=== PATIENT | male | born 1935 | race Two or more races ===

== ENCOUNTER 2018-09-05 20:03 | Inpatient (IN) | payer OTHER ==
[~2018-09-05] VITALS: Ht 180.3 cm; Wt 80.1 kg
[2018-09-05] MEDS ORDERED: SODIUM CHLORIDE 0.9% 500 ML IV ONE ×2 (20:26→20:30)
[2018-09-05] MEDS ORDERED: ACETAMINOPHEN 500 MG TAB PO ONE (20:30)
[2018-09-05] MEDS ORDERED: IBUPROFEN 600 MG TAB PO ONE (20:30)
[2018-09-05] MEDS ORDERED: ONDANSETRON HCL 4 MG/2 ML VIAL IV ONE (20:45)
[2018-09-05] MEDS ORDERED: MORPHINE SULF INJ 2 MG/ML SYRINGE 1ML IV ONE (20:45)
[2018-09-05] MEDS ORDERED: cefTRIAXone 1GM/50ML D5W 50 ML IV ONE (20:45)
[2018-09-05] MEDS ORDERED: AZITHROMYCIN 500MG/ 250ML 250 ML IV ONE (20:45)
[2018-09-05] MEDS ORDERED: ACETAMINOPHEN 650 MG RECT SUPP PR ONE (21:00)
[2018-09-05 21:27] LABS: Hemoglobin 16.9 g/dL (13.5-17.5); Mean Corpuscular Hemoglobin 32.5 pg (28.0-32.0); Mean Corpuscular Hgb Conc. 33.8 g/dL (32.0-36.0); Mean Corpuscular Volume 95.9 fL (80.0-100.0); Platelet Count (auto) 120 10^3/uL (140-450); Red Blood Cells 5.21 10^6/uL (4.5-5.90); Red Cell Distribution Width 14.7 % (11.8-14.3); White Blood Cell 8.3 10^3/uL (4.4-10.8)
[2018-09-05 21:35] LABS: Basophils % (manual) 0 (0.0-2.0); Blast Cells 0; Eosinophils % (manual) 0 (0-7); Metamyelocytes % 0; Myelocytes % 0; Promyelocytes % 0; Reactive Lymphocytes 0
[2018-09-05 21:37] LABS: Calcium 8.5 mg/dL (8.5-10.1); Potassium 3.3 mmol/L (3.5-5.1)
[2018-09-05 21:40] LABS: Lactic Acid w/Reflex 2.6 mmol/L (0.4-2.0)
[2018-09-05 21:41] LABS: Lipase 85 U/L (73-393)
[2018-09-05 21:42] LABS: BUN/Creatinine Ratio 17.8; Bilirubin, Total 0.9 mg/dL (0.2-1.0); Total Protein 6.1 g/dL (6.4-8.2)
[2018-09-05 21:43] LABS: INR 1.05 (0.9-1.15); Partial Thromboplastin Time 26.9 sec (23.64-32.05)
[2018-09-05 22:46] LABS: Urine Bacteria NONE SEEN /hpf (None Seen); Urine Blood TRACE /uL (Negative); Urine Specific Gravity 1.017 (1.001-1.035); Urine WBC 1 /hpf (0 - 3)
[2018-09-05 23:02] LABS: Band Neutrophils % (manual) 11; Lymphocytes % (manual) 6 (10.0-50.0); Monocytes % (manual) 5 (0-12)
[2018-09-06] VITALS (65 sets, daily range): BP systolic 90–153; BP diastolic 30–120
[2018-09-06] LABS: Lactic Acid w/Reflex 3.7 mmol/L (0.4-2.0)
[2018-09-06] MEDS ORDERED: SODIUM CHLORIDE 0.9% 2,000 ML IV ONE (01:00)
[2018-09-06] MEDS ORDERED: ACETAMINOPHEN 650 MG RECT SUPP PR ONE (01:45)
[2018-09-06] MEDS ORDERED: POTASSIUM CHL 20MEQ/100ML 100 ML IV ONE ×2 (02:15→07:31)
[2018-09-06] MEDS ORDERED: NOREPINEPHRINE 8 MG/250ML KIT 250 ML IV SCH (02:15)
[2018-09-06] MEDS: NOREPINEPHRINE 8 MG/250ML KIT 250 ML IV SCH (02:25)
[2018-09-06] MEDS ORDERED: VANCOMYCIN PER PHARMACY 0 MG IV SCH (03:00)
[2018-09-06] MEDS ORDERED: ONDANSETRON HCL 4 MG/2 ML VIAL IV PRN (03:00)
[2018-09-06] MEDS ORDERED: MORPHINE SULF INJ 2 MG/ML SYRINGE 1ML IV PRN (03:00)
[2018-09-06] MEDS ORDERED: TEMAZEPAM 15 MG CAP PO PRN (03:00)
[2018-09-06] MEDS ORDERED: NITROGLYCERIN 0.4 MG SL TAB SL PRN (03:00)
[2018-09-06] MEDS ORDERED: HYDROcodone-ACET 5/325MG TAB PO PRN (03:00)
[2018-09-06] MEDS ORDERED: DEXTROSE (50%) 50ML SYRG IV PRN (03:00)
[2018-09-06] MEDS ORDERED: metroNIDAZOLE 500MG/100ML 100 ML IV ONE (03:00)
[2018-09-06] MEDS ORDERED: VANCOMYCIN 1GM/250ML 250 ML IV SCH (04:00)
[2018-09-06] MEDS ORDERED: SODIUM CHLORIDE 0.9% 1,000 ML IV ONE (04:00)
[2018-09-06] MEDS: SODIUM CHLORIDE 0.9% 1,000 ML IV SCH ×2 (04:00→14:00)
[2018-09-06] MEDS: InsuLIN REG 1unit/0.01ml Soln (100units/ml) SC SCH ×4 (06:00→23:42)
[2018-09-06] MEDS ORDERED: PIPERACILLIN-TAZOB 3.375GM 100 ML IV SCH (06:00)
[2018-09-06] MEDS: ACCU-CHEK COMFORT CURVE STRIP VI SCH ×4 (06:00→23:42)
[2018-09-06] MEDS: PANTOPRAZOLE 40 MG/10 ML VIAL INJ IV SCH (06:00)
[2018-09-06 06:36] LABS: Basophils # (auto) 0 uL; Basophils % (auto) 0.1 % (0.0-2.0); Eosinophils # (auto) 0 uL; Hematocrit 38.8 % (41.0-53.0); Hemoglobin 12.8 g/dL (13.5-17.5); Lymphocytes # (auto) 0.9 uL; Lymphocytes % (auto) 7.1 % (10.0-50.0); Mean Corpuscular Hemoglobin 32.4 pg (28.0-32.0); Mean Corpuscular Hgb Conc. 33.1 g/dL (32.0-36.0); Mean Corpuscular Volume 97.9 fL (80.0-100.0); Monocytes # (auto) 1.3 uL; Monocytes % (auto) 9.8 % (0.0-12.0); Neutrophils # (auto) 10.8 uL; Platelet Count (auto) 105 10^3/uL (140-450); Red Blood Cells 3.96 10^6/uL (4.5-5.90); Red Cell Distribution Width 14.6 % (11.8-14.3)
[2018-09-06 06:44] LABS: Chloride 120 mmol/L (98-107); Sodium 147 mmol/L (136-145)
[2018-09-06 06:59] LABS: Potassium 2.9 mmol/L (3.5-5.1)
--- NOTE | 2018-09-06 07:01 | NUR ---
CRITICAL LAB/PAGED HOSPITALIST CALL RECEIVED FROM LAB WITH CRITICAL MAGNESIUM AND POTASSIUM LEVEL. PAGED HOSPITALIST/ER PHYSICIAN, AWAITING RESPONSE. CHARGE NURSE PHILL WALTER.
[2018-09-06 07:03] LABS: Albumin 1.4 g/dL (3.4-5.0); Alkaline Phosphatase 47 U/L (45-117); Anion Gap 11 (5-15); BUN/Creatinine Ratio 17.4; Bilirubin, Total 0.5 mg/dL (0.2-1.0); Blood Urea Nitrogen 21 mg/dL (7-18); Carbon Dioxide 16 mmol/L (21-32); GFR African American 74 mL/min; GFR Non-African American 61 mL/min; Glucose 292 mg/dL (74-106); Total Protein 3.2 g/dL (6.4-8.2)
[2018-09-06] MEDS ORDERED: MAGNESIUM SULFATE 1GM/100ML 100 ML IV ONE ×2 (07:10→07:38)
--- NOTE | 2018-09-06 07:12 | NUR ---
NASEEM CHRIS PAlidaA. AT BEDSIDE AWARE OF CRITICAL LABS, ORDERS RECEIVED BY BOTH SERA ARNP RN AND MYSELF. ORDERS WILL BE CARRIED OUT STAT.
--- NOTE | 2018-09-06 07:20 | NUR ---
OPENING SHIFT NOTE Assumed care of patient, awake and alert but appearing fatigued with episodes of forgetfulness. No S/S or distress noted, patient denies pain or discomfort at this time. Discussed plan of care in Mongolian with patient, no family at bedside at this time. Patient instructed to call for assist as needed and call light within reach. Patient verbalized understanding. Fall and safety precautions in place. Will continue to monitor for changes Q1hr and PRN.
[2018-09-06] MEDS ORDERED: NEBI10TA2 PO (07:47)
[2018-09-06] MEDS ORDERED: AZEL0.054 EACHEYE (07:47)
[2018-09-06] MEDS ORDERED: OMEP20TA PO (07:47)
[2018-09-06] MEDS ORDERED: DONE5TAB31 PO (07:47)
[2018-09-06] MEDS ORDERED: MONT10TA34 OR (07:47)
[2018-09-06] MEDS ORDERED: GUAI600T23 PO (07:47)
[2018-09-06] MEDS ORDERED: NAS17NSL (07:47)
[2018-09-06] MEDS ORDERED: BENA40TA7 PO (07:47)
[2018-09-06] MEDS ORDERED: TAMS0.4C36 PO (07:47)
[2018-09-06] MEDS ORDERED: SITA50TA PO (07:47)
[2018-09-06] MEDS ORDERED: INSLISPI SC (07:47)
[2018-09-06] MEDS ORDERED: GABA300C10 PO (07:47)
[2018-09-06] MEDS ORDERED: INSLANTI SC (07:47)
[2018-09-06] MEDS: MAGNESIUM SULFATE 1GM/100ML 100 ML IV SCH ×2 (08:16→08:17)
--- NOTE | 2018-09-06 08:28 | NUR ---
CALL RECEIVED FROM LAB PER SUPERVISOR POLICY CHANGE CLERKS, "UNABLE TO PROCESS REMAINDER OF CMP DUE TO CLOTTING ISSUES, THE MACHINE WILL NOT PROCESS ANYTHING AFTER THE POTASSIUM AND MAGNESIUM". WILL RE-ORDER CMP ONCE MAG AND POTASSIUM IV ADMINISTRATION IS COMPLETED TO REASSESS LEVELS.
[2018-09-06] MEDS: PIPERACILLIN-TAZOB 3.375GM 100 ML IV SCH ×2 (09:04→18:40)
[2018-09-06] MEDS: POTASSIUM CHL 20MEQ/100ML 100 ML IV SCH (09:20)
--- NOTE | 2018-09-06 09:30 | NUR ---
CAREER AND GUIDANCE COUNSELOR AT BEDSIDE FOR CMP REDRAW/MAG AND LACTIC ACID.
--- NOTE | 2018-09-06 10:00 | NUR ---
GI AT BEDSIDE DR COCHRAN UPDATED ON PATIENT'S STATUS, DRIPS AND REASON FOR CONSULT. DR COCHRAN DISCUSSED POC WITH PATIENT AT BEDSIDE, NO ORDERS AT THIS TIME; PENDING STOOL FOR CDIFF AND BACTERIA CULTURE - NO BOWEL MOVEMENT AT THIS TIME.
[2018-09-06 10:23] LABS: Lactic Acid w/Reflex 3.7 mmol/L (0.4-2.0)
--- NOTE | 2018-09-06 10:30 | NUR ---
FAMILY AT BEDSIDE PATIENT'S SON AND GRANDSON AT BEDSIDE, PATIENT CONVERSING APPROPRIATELY AND WATCHING TELEVISION. WILL CONTINUE TO MONITOR.
[2018-09-06 10:44] LABS: Glucose 374 mg/dL (74-106)
[2018-09-06 10:52] LABS: Alkaline Phosphatase 76 U/L (45-117); Anion Gap 10 (5-15); Aspartate Aminotransferase 13 U/L (15-37); BUN/Creatinine Ratio 18.2; Blood Urea Nitrogen 31 mg/dL (7-18); Carbon Dioxide 19 mmol/L (21-32); Chloride 109 mmol/L (98-107); GFR African American 50 mL/min; GFR Non-African American 41 mL/min; Potassium 5.1 mmol/L (3.5-5.1); Sodium 138 mmol/L (136-145)
[2018-09-06 10:53] LABS: Alanine Aminotransferase 26 U/L (16-61); Albumin 2.3 g/dL (3.4-5.0); Bilirubin, Total 0.7 mg/dL (0.2-1.0); Calcium 7.2 mg/dL (8.5-10.1); Total Protein 5.2 g/dL (6.4-8.2)
[2018-09-06 10:54] LABS: Magnesium 2.9 mg/dL (1.6-2.6)
[2018-09-06 11:06] LABS: Cholesterol 113 mg/dL (< 200); Triglycerides 73 mg/dL (< 150)
[2018-09-06 11:08] LABS: HDL Cholesterol 39 mg/dL (40-59); LDL Cholesterol 68 mg/dL (< 100)
--- NOTE | 2018-09-06 13:06 | NUR ---
BM/COMFORT/STOOL SAMPLE SENT TO LAB PATIENT CLEANSED OF YELLOW, FOUL ODOR, WATERY LOOSE STOOL. PATIENT ASSISTED TO BEDSIDE COMMODE BY COVERING RN WHILE THIS NURSE WAS AT LUNCH. UPON RETURNING FROM LUNCH, COMFORT MEASURES PROVIDED AND BOTTOM CLEANSED, PATIENT ABLE TO STAND AND RETURN TO BED WITH MINIMAL ASSISTANCE. STOOL SAMPLE SENT TO LAB FOR STOOL CULTURE ORDERED BY DR COCHRAN. C-DIFF TEST REQUISITION SHEET INITIATED AND FILED IN CHART FOR CONTINUED DOCUMENTATION PER C-DIFF PROTOCOL. FAMILY REMAINS AT BEDSIDE. PHILL CHARGE NURSE NOTIFIED.
[2018-09-06] MEDS ORDERED: metroNIDAZOLE 500MG/100ML 100 ML IV SCH (14:00)
--- NOTE | 2018-09-06 14:40 | NUR ---
REAL ESTATE DEVELOPMENT MANAGER AT BEDSIDE
--- NOTE | 2018-09-06 14:48 | NUR ---
US TECH AT BEDSIDE/HOSPITALIST DR SPAULDING UPDATED ON PATIENT'S STATUS AND PRN PINK TINGED URINE NOTED IN [facility] AND PATIENT COMPLAIN OF GROIN PAIN. ORDERS FOR DOWNGRADE TO [facility] RECEIVED, FLOMAX AND PROSTATE LABS. DR SPAULDING DISCUSSED PLAN OF CARE WITH PATIENT'S FAMILY. DR SPAULDING NOTIFIED FAMILY THAT PATIENT "WILL BE RELEASED WITH [facility] CATHETER TO FOLLOW-UP WITH UROLOGIST OUTPATIENT". FAMILY VERBALIZED UNDERSTANDING.
[2018-09-06] MEDS ORDERED: TAMSULOSIN HYDROCHLORIDE 0.4 MG CAP PO ONE (15:30)
[2018-09-06 18:06] LABS: BUN/Creatinine Ratio 19.8; Calcium 7.5 mg/dL (8.5-10.1); Potassium 4.6 mmol/L (3.5-5.1)
[2018-09-06 18:17] LABS: Lactic Acid w/Reflex 2.4 mmol/L (0.4-2.0)
[2018-09-06] MEDS: TAMSULOSIN HYDROCHLORIDE 0.4 MG CAP PO SCH (18:41)
[2018-09-06] MEDS: ACETAMINOPHEN 325 MG TAB PO PRN (18:41)
--- NOTE | 2018-09-06 19:36 | NUR ---
CLOSING NOTE PATIENT RESTING IN BED, ALERT AND ORIENTED X3 WITH EPISODES OF FORGETFULNESS. NO DISTRESS NOTED, RESPIRATIONS EVEN AND UNLABORED, CURRENTLY ON ROOM AIR. ENDORSED CONTINUED CARE TO FAMILY LAW PARALEGAL RN. NOTIFIED RECEIVING RN TO MONITOR NOTED BLEEDING IN [facility] CATHETER.
--- NOTE | 2018-09-06 20:00 | NUR ---
Opening Shift Note Assumed care of patient, awake and alert but confused. Family at bedside helping with translation. Breathing on RA, even and nonlabored, No S/S of distress/SOB. Pain controlled with Tylenol that given earlier. 18G IV at right FA infusing with NS, CDI site. 20IV at left FA, infusing with antibiotic, CDI site. Bolden's catheter hung to gravity with some small sediments and pink tinged, will continue to observed. Bed in low position, call light within reach, fall and safety precaution in place, all alarms are audible. Instructed on POC and to call for assist PRN, will continue to monitor for changes Q1hr and PRN.
--- NOTE | 2018-09-06 21:30 | NUR ---
Desaturation while sleeping, RR in the 10's, even and nonlabored breathing, O2sat fluctuating from 86-92%. Put Pt on 2LPM O2NC, O2sat increased to mid 90's. Continue monitoring.
--- NOTE | 2018-09-06 23:50 | NUR ---
Condition update/ pain Pt's condition stable, no fever. Still had period of desaturation while sleeping to high 80's, increased O2NC to 3LPM, will continue to monitor. C/O pain at abdomen while coughing, will administer pain medicine as order. AccuCheck 151mg/dl, will administer insulin per sliding scale. Continue care.
[2018-09-07] VITALS (7 sets, daily range): BP systolic 105–133; BP diastolic 40–68
[2018-09-07 00:39] LABS: Urine Bacteria MOD /hpf (None Seen); Urine Blood 2+ /uL (Negative); Urine Specific Gravity 1.031 (1.001-1.035); Urine WBC 42 /hpf (0 - 3)
[2018-09-07] MEDS ORDERED: VANCOMYCIN 1GM/250ML 250 ML IV SCH (01:00)
--- NOTE | 2018-09-07 01:10 | NUR ---
Received Bed assignment [facility] 262
--- NOTE | 2018-09-07 01:25 | NUR ---
Report given to Sahara CASTRO. Pt's belonging prepared and will sent to [facility] with Pt. Sahara CASTRO will notify family in the morning about room transfer.
[2018-09-07] MEDS: NOREPINEPHRINE 8 MG/250ML KIT 250 ML IV SCH (01:30)
[2018-09-07] MEDS: SODIUM CHLORIDE 0.9% 1,000 ML IV SCH ×2 (01:35→16:32)
--- NOTE | 2018-09-07 01:40 | NUR ---
Transferring to [facility] 262, Pt moved to [facility] bed slowly by self with minimal help. Transferred by bed with cardiac exercise specialist, RA while transferring, O2sat 94-96%. v/s stable, No s/s of distress. Pt's belonging transferred with Pt.
--- NOTE | 2018-09-07 01:45 | NUR ---
Admit to [facility] JORDANA ZAPATA admitted to [facility] via bed on guest experience captain, and portable 02. Patient connected to unit monitoring and oxygen. Patient oriented to Sahara Horowitz, primary RN, unit, room, bed, and unit policies regarding patient care and visiting hours. All questions and concerns addressed, patient verbalized understanding. Stable at this time, will continue to monitor.
[2018-09-07] MEDS: PIPERACILLIN-TAZOB 3.375GM 100 ML IV SCH ×3 (02:00→17:53)
[2018-09-07] MEDS: ACCU-CHEK COMFORT CURVE STRIP VI SCH ×3 (06:00→17:53)
[2018-09-07] MEDS: PANTOPRAZOLE 40 MG/10 ML VIAL INJ IV SCH (06:00)
[2018-09-07 06:03] LABS: Basophils # (auto) 0 uL; Basophils % (auto) 0.4 % (0.0-2.0); Eosinophils # (auto) 0.1 uL; Eosinophils % (auto) 0.4 % (0.0-7.0); Hematocrit 42.7 % (41.0-53.0); Hemoglobin 14.2 g/dL (13.5-17.5); Lymphocytes # (auto) 1.1 uL; Lymphocytes % (auto) 8.5 % (10.0-50.0); Mean Corpuscular Hemoglobin 32.6 pg (28.0-32.0); Mean Corpuscular Hgb Conc. 33.3 g/dL (32.0-36.0); Monocytes # (auto) 0.8 uL; Monocytes % (auto) 6.3 % (0.0-12.0); Neutrophils # (auto) 10.7 uL; Neutrophils % (auto) 84.4 % (37.0-80.0); Platelet Count (auto) 89 10^3/uL (140-450); Red Blood Cells 4.35 10^6/uL (4.5-5.90); White Blood Cell 12.7 10^3/uL (4.4-10.8)
[2018-09-07 06:19] LABS: Albumin 2.3 g/dL (3.4-5.0); Calcium 7.5 mg/dL (8.5-10.1); Magnesium 2.6 mg/dL (1.6-2.6); Potassium 4.3 mmol/L (3.5-5.1)
[2018-09-07 06:24] LABS: BUN/Creatinine Ratio 21.7; Bilirubin, Total 0.5 mg/dL (0.2-1.0)
[2018-09-07] MEDS: InsuLIN REG 1unit/0.01ml Soln (100units/ml) SC SCH ×3 (07:49→17:54)
--- NOTE | 2018-09-07 09:00 | NUR ---
Patient's and daughter Aisha at bedside, POC explained. Family verbalized understanding.
--- NOTE | 2018-09-07 09:15 | NUR ---
Dr Park at bedside, updated on patient's status. Patient seen and examined. Received verbal order for physical therapy and KUB xray, orders read back and verified. Will facilitate and carry out.
[2018-09-07] MEDS ORDERED: PANTOPRAZOLE 40 MG TAB PO ONE (09:30)
[2018-09-07] MEDS: PANTOPRAZOLE 40 MG TAB PO SCH (09:55)
--- NOTE | 2018-09-07 10:12 | NUR ---
Patient ambulated one lap around nurse station with Benito PT. Fall precautions in placed. Patient tolerated well.
--- NOTE | 2018-09-07 10:55 | NUR ---
Dr Aguilera at bedside, updated on patient's status. Patient seen and examined. No new orders at this time.
--- NOTE | 2018-09-07 14:17 | NUR ---
Dr Joiner at bedside, updated on patient's status. Patient seen and examined. No new orders at this time.
--- NOTE | 2018-09-07 15:24 | NUR ---
[facility] [place] [facility] for ss HH order.
--- NOTE | 2018-09-07 15:30 | NUR ---
Cynthia's ph # at [facility] is [phone] and fax is [phone]
--- NOTE | 2018-09-07 15:34 | NUR ---
CM ph line at [facility] is [phone] ext [phone]
[2018-09-07] MEDS: ACETAMINOPHEN 325 MG TAB PO PRN (16:33)
--- NOTE | 2018-09-07 17:38 | NUR ---
Per LEONARD consult home health for antony mgmnt and home physical therapy. Contacted [facility] Ph: ) Fax: ) faxed medical records. Bala Vargas from [facility] pt has been accepted and service to start within 48 hours upon d/c. Informed statistics manager Padma for authorization. Addendum: 09/07/18 at 1741 by JL MUÑOZ Amended: Links added.
[2018-09-07] MEDS: TAMSULOSIN HYDROCHLORIDE 0.4 MG CAP PO SCH (17:53)
--- NOTE | 2018-09-07 19:45 | NUR ---
SHIFT OPENING NOTE RECEIVED PATIENT AWAKE, ALERT AND ORIENTED X4. PERIODS OF CONFUSION. NO SOB, DISTRESS OR PAIN NOTED. ON 3 L N/C. PHYSICAL ASSESSMENT COMPLETED, SEE INTERVENTIONS. [facility] CATH DRAINING YELLOW URINE TO GRAVITY. INSTRUCTED ON POC AND TO CALL FOR ASSIST NEEDED. BED IS IN THE LOWEST POSITION WITH SIDE RAILS UP X2, CALL LIGHT IS WITHIN REACH. FAMILY AT BEDSIDE
[2018-09-08] VITALS (7 sets, daily range): BP systolic 130–165; BP diastolic 60–84
--- NOTE | 2018-09-08 01:00 | NUR ---
MORNING HYGIENE CARE PATIENT UP TO BSC AND HAD A SOFT BROWN BM. FULL BODY CLEANSED WITH CHG WIPES, GOWN CHANGED, PARTIAL LINEN CHANGED. SAFELY BACK TO BED. NO DISTRESS NOTED.
[2018-09-08] MEDS: ACCU-CHEK COMFORT CURVE STRIP VI SCH ×4 (01:01→17:43)
[2018-09-08] MEDS: SODIUM CHLORIDE 0.9% 1,000 ML IV SCH ×3 (01:01→22:42)
[2018-09-08] MEDS: PIPERACILLIN-TAZOB 3.375GM 100 ML IV SCH ×3 (01:42→17:43)
[2018-09-08] MEDS: InsuLIN REG 1unit/0.01ml Soln (100units/ml) SC SCH ×4 (01:42→18:33)
[2018-09-08 05:56] LABS: Basophils # (auto) 0 uL; Basophils % (auto) 0.4 % (0.0-2.0); Eosinophils # (auto) 0.1 uL; Eosinophils % (auto) 0.9 % (0.0-7.0); Hematocrit 41.3 % (41.0-53.0); Hemoglobin 14.1 g/dL (13.5-17.5); Lymphocytes % (auto) 9.5 % (10.0-50.0); Mean Corpuscular Hemoglobin 33.1 pg (28.0-32.0); Mean Corpuscular Hgb Conc. 34.1 g/dL (32.0-36.0); Mean Corpuscular Volume 97.2 fL (80.0-100.0); Monocytes # (auto) 0.5 uL; Monocytes % (auto) 5.2 % (0.0-12.0); Neutrophils # (auto) 8.7 uL; Nucleated Red Blood Cells % 0.1 %; Platelet Count (auto) 101 10^3/uL (140-450); Red Blood Cells 4.25 10^6/uL (4.5-5.90); Red Cell Distribution Width 15.2 % (11.8-14.3); White Blood Cell 10.4 10^3/uL (4.4-10.8)
[2018-09-08 06:20] LABS: Potassium 4.2 mmol/L (3.5-5.1)
[2018-09-08 06:27] LABS: BUN/Creatinine Ratio 16.6; Calcium 7.7 mg/dL (8.5-10.1)
--- NOTE | 2018-09-08 07:10 | NUR ---
END OF SHIFT PATIENT IS LAYING IN BED SLEEPING. NO SOB, DISTRESS OR PAIN NOTED. REPORT GIVEN AND CARE ENDORSED TO OSCAR CASTRO.
--- NOTE | 2018-09-08 07:30 | NUR ---
Opening Shift Note Assumed care of patient, laying in bed, eyes closed, arousable to voice, oriented x2, re-orientation done. Patient primary Vietnamese speaking, utilized [employer] Hat Cutter in communicating with patient. No S/S of distress/SOB or pain. Bed locked on low position, side rails up x2, bed alarms on at all times, call hong within reach, instructed on POC and to call for assist PRN, will continue to monitor for changes Q1hr and PRN.
[2018-09-08] MEDS: PANTOPRAZOLE 40 MG TAB PO SCH (09:23)
--- NOTE | 2018-09-08 10:01 | NUR ---
Dr Park at bedside, updated on patient's status. Patient seen and examined. Received verbal instruction to ambulate patient and downgrade to Tele if ambulation is uneventful. Will facilitate.
--- NOTE | 2018-09-08 10:40 | NUR ---
Patient out of bed to commode with assist. Fall precautions in placed. Patient tolerated well.
--- NOTE | 2018-09-08 13:34 | NUR ---
Patient ambulated two laps around nurse station using walker with Tay PT, fall precautions in placed. Patient tolerated well. Patient need walker at home per PT recommendation. Paged Dr Park, awaiting call back.
[2018-09-08] MEDS: TAMSULOSIN HYDROCHLORIDE 0.4 MG CAP PO SCH (17:43)
--- NOTE | 2018-09-08 20:00 | NUR ---
SHIFT OPENING NOTE RECEIVED PATIENT AWAKE, ALERT AND ORIENTED X4. PERIODS OF CONFUSION. NO SOB, DISTRESS OR PAIN NOTED. ON 2 L N/C. PHYSICAL ASSESSMENT COMPLETED, SEE INTERVENTIONS. [facility] CATH DRAINING YELLOW URINE TO GRAVITY. INSTRUCTED ON POC AND TO CALL FOR ASSIST NEEDED. BED IS IN THE LOWEST POSITION WITH SIDE RAILS UP X2, CALL LIGHT IS WITHIN REACH.
--- NOTE | 2018-09-08 20:37 | NUR ---
REPORT GIVEN TO MAHI CASTRO IN TELE ALL QUESTIONS ANSWERED
--- NOTE | 2018-09-08 20:53 | NUR ---
[facility]ER[facility] pt transferred to floor ZAPATA,BIBIANO transfered to via rabia on cardiac rn and portable 02. All patient medications and personal belongings transfered with patient to receiving floor. Patient care transfered to room 278A]. NOTE: Patient received from [facility]. No acute distress noted. Bolden Catherter draining yellow urine. Patient is Spainish speaking all needs are anticipated. Will continue to monitor every hour and as needed. Call light in reach; bed in low position.
--- NOTE | 2018-09-08 20:53 | NUR ---
PATIENT SAFELY TRANSPORTED TO TELE VIA BED. ALL BELONGINGS TAKEN WITH PATIENT.
[2018-09-09] MEDS: InsuLIN REG 1unit/0.01ml Soln (100units/ml) SC SCH ×3 (00:17→12:00)
[2018-09-09] MEDS: ACCU-CHEK COMFORT CURVE STRIP VI SCH ×3 (00:17→12:00)
[2018-09-09] MEDS: PIPERACILLIN-TAZOB 3.375GM 100 ML IV SCH ×2 (02:06→09:31)
[2018-09-09 05:38] VITALS: BP 142/73
--- NOTE | 2018-09-09 07:30 | NUR ---
Opening Shift Note Report received. Assumed care of patient, awake and alert. No S/S of distress/SOB or pain. Instructed on POC and to call for assist PRN, will continue to monitor for changes Q1hr and PRN.
[2018-09-09 08:25] VITALS: BP 188/76
[2018-09-09] MEDS: PANTOPRAZOLE 40 MG TAB PO SCH (09:31)
--- NOTE | 2018-09-09 10:40 | NUR ---
Ambulating in fox with PT.
--- NOTE | 2018-09-09 11:44 | NUR ---
Dr. Park in to see patient as hospitalist.
--- NOTE | 2018-09-09 12:59 | NUR ---
Patient's daughter at bedside and requesting to speak with Dr. Park. Page placed.
--- NOTE | 2018-09-09 13:14 | NUR ---
Dr. Park informed that patient's daughter wants to speak to him. Dr. Park states he will come later to speak with the family. Patient's daughter informed.
--- NOTE | 2018-09-09 13:30 | NUR ---
Dr. Park at bedside to speak with family.
--- NOTE | 2018-09-09 15:00 | NUR ---
Patient education given re leg bag.
--- NOTE | 2018-09-09 15:43 | NUR ---
Discharge instructions given as ordered. Encourage to follow up with PMD as instructed. All questions and concerns addressed. Patient verbalized understanding. Medication reconciliation form completed and copy given to patient. . IV removed with catheter intact, pressure dressing applied. Telemetry unit returned to ICU. Patient home with antony catheter. Patient taken to vehicle via wheelchair with all personal belongings, accompanied by staff and family member. No distress noted at time of departure.
== END 2018-09-09 15:43 | disposition home or self-care (01) | DRG 871 ==
LOC: ER 20:09 → TELE 20:10 → ICU WEST 09-06 04:08 → DOU IN ICU 09-07 02:00 → TELE-WESTW 09-08 20:44
PROVIDERS: ADMIT Nurse Practitioner; ATTEND Internal Medicine
DX: A41.9 Sepsis, unspecified organism (principal); G93.41 Metabolic encephalopathy; N17.0 Acute kidney failure with tubular necrosis; J90 Pleural effusion, not elsewhere classified; N18.4 Chronic kidney disease, stage 4 (severe); A09 Infectious gastroenteritis and colitis, unspecified; J98.11 Atelectasis; E11.22 Type 2 diabetes mellitus with diabetic chronic kidney disease; E83.42 Hypomagnesemia; E86.0 Dehydration; E87.6 Hypokalemia; F03.90 Unspecified dementia, unspecified severity, without behavioral disturbance, psychotic disturbance, mood disturbance, and anxiety; K80.20 Calculus of gallbladder without cholecystitis without obstruction; I12.9 Hypertensive chronic kidney disease with stage 1 through stage 4 chronic kidney disease, or unspecified chronic kidney disease; J40 Bronchitis, not specified as acute or chronic; N18.3 Chronic kidney disease, stage 3 (moderate); N40.0 Benign prostatic hyperplasia without lower urinary tract symptoms; Z90.5 Acquired absence of kidney
CPT/HCPCS: 36415; 36600; 51702; 70450; 71045; 74018; 74176; 76775; 80048; 80053; 80061; 81001; 82140; 82306; 82570; 82805; 82962; 83036; 83605; 83690; 83735; 83880; 84154; 84156; 84300; 84484; 85007; 85025; 85027; 85610; 85730; 87040; 87045; 87081; 87086; 87899; 93005; 93306; 96361; 96365; 96367; 97116; 97530; G0378; J0696; J1815; J2543; J3480; J3490